=== PATIENT | female | born 1980 | race Two or more races ===

== ENCOUNTER 2022-02-28 10:21 | Emergency (ER) | payer BC ==
[2022-02-28 10:48] VITALS: BP 130/82; PULSE 95; TEMP 97.8; BMI 27.4
[2022-02-28] MEDS ORDERED: DEXAMETHASONE SOD PHOSPHATE 10 MG/1 ML VIAL IM ONE (13:17)
[2022-02-28] MEDS ORDERED: DEXAMETHASONE SOD PHOSPHATE 10 MG/1 ML VIAL ONE (14:11)
[2022-02-28] MEDS ORDERED: AMOX TR/POT CLAV 875MG/125MG TABLETS (FP) PO ONE (14:20)
[2022-02-28] MEDS ORDERED: AMOX TR/POT CLAV 875MG/125MG TABLETS (FP) ONE (14:33)
== END 2022-02-28 14:43 | disposition home or self-care (01) ==
LOC: JER 10:21
PROC: 3E023GC Introduction of Other Therapeutic Substance into Muscle, Percutaneous Approach (ICD-10-PCS; principal; 2022-02-28)
DX: J01.90 Acute sinusitis, unspecified (principal)
CPT/HCPCS: 0241U-QW; 93005; 93010; 99284-25; J1100

== ENCOUNTER 2022-03-07 12:12 | Inpatient (IN) | payer BC ==
[2022-03-07] MEDS ORDERED: ONDANSETRON 4 MG/2 ML VIAL IVPUSH ONE (13:10)
[2022-03-07] MEDS ORDERED: morphine CARPU-JECT 4 MG/1 ML DISP.SYRIN IVPUSH ONE (13:10)
[2022-03-07] MEDS ORDERED: SODIUM CHLORIDE 1,000 ML IV STA (13:10)
[2022-03-07] MEDS ORDERED: morphine SULFATE 4 MG/ML VIAL ONE (13:43)
[2022-03-07] MEDS ORDERED: ONDANSETRON 4 MG/2 ML VIAL ONE (13:43)
[2022-03-07 13:45] LABS: PH,URINE 7.5 (5.0-8.0); URINE APPEARANCE CLEAR; URINE BILIRUBIN NEGATIVE (NEGATIVE); URINE COLOR YELLOW; URINE GLUCOSE (UA) NEGATIVE (NEGATIVE); URINE KETONE NEGATIVE (NEGATIVE); URINE LEUK ESTERASE NEGATIVE (NEGATIVE); URINE NITRITE NEGATIVE (NEGATIVE); URINE PROTEIN NEGATIVE (NEGATIVE); URINE UROBILINOGEN 0.2 mg/dL (0.2-1.0)
[2022-03-07 13:47] LABS: BASO % 0.8 % (0-2.0); EOS % 10.1 % (0-4.5); HEMATOCRIT 36.8 % (32.4-45.2); HEMOGLOBIN 12.4 GM/dL (10.7-15.3); LYMPH % 13.8 % (8-40); MCH 30.6 pg (25.7-33.7); MCHC 33.7 g/dl (32.0-36.0); MEAN PLT VOLUME 7.2 fl (7.5-11.1); MONO % 7.6 % (3.8-10.2); NEUT % 67.7 % (42.8-82.8); PLATELET COUNT 252 10^3/uL (134-434); RBC 4.04 M/mm3 (3.60-5.2); RDW 14.3 % (11.6-15.6); WHITE BLOOD COUNT 11.5 K/mm3 (4.0-10.0)
[2022-03-07 14:14] LABS: ALBUMIN 3.6 g/dl (3.4-5.0); CALCIUM 9.3 mg/dL (8.5-10.1)
[2022-03-07 14:15] LABS: BLOOD UREA NITROGEN 10.6 mg/dL (7-18); MAGNESIUM 2.5 mg/dL (1.8-2.4)
[2022-03-07 14:17] LABS: CREATININE 0.7 mg/dL (0.55-1.3)
[2022-03-07 14:19] LABS: BILIRUBIN,TOTAL 0.5 mg/dL (0.2-1); TOT PROT 7.5 g/dl (6.4-8.2)
[2022-03-07] MEDS ORDERED: PIPERACILLIN/TAZOB 4.5 GM 4.5 GM in DEXTROSE 5%-WATER 100 ML IVPB ONE (16:00)
[2022-03-07] MEDS ORDERED: PIPERACILLIN/TAZOB 4.5 GM 4.5 GM/100 ML BAG IVPB ONE (16:17)
[2022-03-07] MEDS: SODIUM CHLORIDE 1,000 ML IV SCH (16:23)
[2022-03-07] MEDS ORDERED: ACETAMINOPHEN 1000 MG/100 ML BAG IVPB PRN (17:28)
[2022-03-07] MEDS ORDERED: morphine SULFATE 4 MG/ML VIAL IVPUSH PRN (17:28)
[2022-03-07 19:05] LABS: INR 1.03 (0.83-1.09); PROTHROMBIN TIME (PATIENT) 11.8 SEC (9.7-13.0)
[2022-03-07] MEDS ORDERED: ONDANSETRON 4 MG/2 ML VIAL IVPUSH PRN (22:47)
[2022-03-08] MEDS ORDERED: ONDANSETRON 4 MG/2 ML VIAL ONE (00:35)
[2022-03-08] MEDS ORDERED: morphine SULFATE 4 MG/ML VIAL ONE (00:35)
[2022-03-08] MEDS ORDERED: ACETAMINOPHEN INJECTION 100 ML IVPB ONE (00:47)
[2022-03-08] MEDS: PIPERACILLIN/TAZOB 3.375 GM 3.375 GM in DEXTROSE 5%-WATER - 50 ML IVPB SCH ×2 (01:25→07:47)
[2022-03-08 03:39] VITALS: BMI 29.0
[2022-03-08] MEDS ORDERED: PIPERACILLIN/TAZOBACTAM 3.375 GM VIAL IVPB ONE (07:37)
[2022-03-08] MEDS ORDERED: DEXTROSE 5%-WATER - 50 ML IVPB ONE (07:37)
[2022-03-08 09:38] LABS: BASO % 0.1 % (0-2.0); EOS % 6.7 % (0-4.5); HEMATOCRIT 34.3 % (32.4-45.2); HEMOGLOBIN 11.3 GM/dL (10.7-15.3); LYMPH % 14.4 % (8-40); MCH 30.2 pg (25.7-33.7); MEAN CELL VOLUME 91.4 fl (80-96); MEAN PLT VOLUME 7.7 fl (7.5-11.1); MONO % 7.5 % (3.8-10.2); NEUT % 71.3 % (42.8-82.8); PLATELET COUNT 242 10^3/uL (134-434); RBC 3.75 M/mm3 (3.60-5.2); RDW 14.2 % (11.6-15.6); WHITE BLOOD COUNT 10.2 K/mm3 (4.0-10.0)
[2022-03-08] MEDS: SODIUM CHLORIDE 1,000 ML IV SCH ×2 (09:44→17:04)
[2022-03-08 10:21] LABS: CALCIUM 8.3 mg/dL (8.5-10.1)
[2022-03-08 10:22] LABS: ALBUMIN 2.9 g/dl (3.4-5.0); BLOOD UREA NITROGEN 7.2 mg/dL (7-18)
[2022-03-08 10:25] LABS: CREATININE 0.6 mg/dL (0.55-1.3)
[2022-03-08 10:26] LABS: BILIRUBIN,TOTAL 0.8 mg/dL (0.2-1); TOT PROT 6.1 g/dl (6.4-8.2)
[2022-03-08] MEDS ORDERED: DEXTROSE 5%-WATER 100 ML IVPB ONE (11:15)
[2022-03-08] MEDS: CEFTRIAXONE 2 GM in DEXTROSE 5%-WATER 100 ML IVPB SCH (11:21)
[2022-03-08] MEDS ORDERED: SENNOSIDES 8.6MG TABLET (FP) PO PRN (21:43)
[2022-03-09] MEDS ORDERED: ALBUTEROL SO4 0.083% IH SOL 2.5 MG/3 ML VIAL.NEB. NEB PRN (05:10)
[2022-03-09] MEDS: PIPERACILLIN/TAZOB 3.375 GM 3.375 GM in DEXTROSE 5%-WATER - 50 ML IVPB SCH (07:44)
[2022-03-09] MEDS ORDERED: DEXTROSE 5%-WATER 100 ML IVPB ONE (09:27)
[2022-03-09 10:01] LABS: HEMATOCRIT 33.5 % (32.4-45.2); HEMOGLOBIN 11.1 GM/dL (10.7-15.3); MCH 30.4 pg (25.7-33.7); MCHC 33.1 g/dl (32.0-36.0); MEAN CELL VOLUME 91.8 fl (80-96); MEAN PLT VOLUME 7.9 fl (7.5-11.1); PLATELET COUNT 241 10^3/uL (134-434); RBC 3.65 M/mm3 (3.60-5.2); RDW 13.8 % (11.6-15.6); WHITE BLOOD COUNT 6.2 K/mm3 (4.0-10.0)
[2022-03-09] MEDS: LACTOBACILLUS ACIDOPHILUS 1 TABLET PO SCH (10:03)
[2022-03-09] MEDS: CEFTRIAXONE 2 GM in DEXTROSE 5%-WATER 100 ML IVPB SCH (10:03)
[2022-03-09] MEDS: SODIUM CHLORIDE 1,000 ML IV SCH ×3 (10:05→21:55)
[2022-03-09 10:38] LABS: ALBUMIN 2.8 g/dl (3.4-5.0); CALCIUM 8.1 mg/dL (8.5-10.1)
[2022-03-09 10:39] LABS: BLOOD UREA NITROGEN 5.7 mg/dL (7-18); MAGNESIUM 2.3 mg/dL (1.8-2.4)
[2022-03-09 10:41] LABS: CREATININE 0.6 mg/dL (0.55-1.3)
[2022-03-09 10:43] LABS: TOT PROT 6.1 g/dl (6.4-8.2)
[2022-03-10] MEDS: SODIUM CHLORIDE 1,000 ML IV SCH (05:48)
[2022-03-10] MEDS ORDERED: DEXTROSE 5%-WATER 100 ML IVPB ONE (08:59)
[2022-03-10] MEDS: CEFTRIAXONE 2 GM in DEXTROSE 5%-WATER 100 ML IVPB SCH (09:19)
[2022-03-10] MEDS: LACTOBACILLUS ACIDOPHILUS 1 TABLET PO SCH (09:19)
[2022-03-10 10:15] LABS: BASO % 0.6 % (0-2.0); EOS % 12.6 % (0-4.5); HEMATOCRIT 34.9 % (32.4-45.2); HEMOGLOBIN 11.5 GM/dL (10.7-15.3); LYMPH % 26.9 % (8-40); MCH 29.9 pg (25.7-33.7); MEAN CELL VOLUME 90.7 fl (80-96); MEAN PLT VOLUME 7.6 fl (7.5-11.1); MONO % 6.5 % (3.8-10.2); NEUT % 53.4 % (42.8-82.8); PLATELET COUNT 281 10^3/uL (134-434); RBC 3.85 M/mm3 (3.60-5.2); WHITE BLOOD COUNT 4.7 K/mm3 (4.0-10.0)
[2022-03-10 10:45] LABS: CALCIUM 8.4 mg/dL (8.5-10.1)
[2022-03-10 10:46] LABS: BLOOD UREA NITROGEN 4.5 mg/dL (7-18)
[2022-03-10 10:49] LABS: CREATININE 0.7 mg/dL (0.55-1.3)
[2022-03-10 10:50] LABS: TOT PROT 6.6 g/dl (6.4-8.2)
[2022-03-10 10:51] LABS: BILIRUBIN,TOTAL 0.4 mg/dL (0.2-1)
[2022-03-10 14:43] VITALS: BP 121/92; PULSE 80; TEMP 98.1
== END 2022-03-10 17:12 | disposition home or self-care (01) | DRG 373 ==
LOC: JER 12:12 → JERBED 17:33 → J6S 03-08 02:49
PROVIDERS: ADMIT Internal Medicine; ATTEND Family Medicine
DX: K35.32 Acute appendicitis with perforation, localized peritonitis, and gangrene, without abscess (principal); J45.909 Unspecified asthma, uncomplicated; R19.7 Diarrhea, unspecified
CPT/HCPCS: 36415; 74176-TC; 80053; 81003; 83690; 83735; 84484; 84703; 85025; 85027; 85610; 86140; 86850; 86900; 86901; 87040; 87086; 93005; 93010; 99285-25; C9803-CS; U0003; U0005